=== PATIENT | female | born 1995 | race Caucasian/White ===

== ENCOUNTER 2017-04-25 23:26 | Emergency (ER) | payer OTHER ==
[~2017-04-25] VITALS: Ht 165.1 cm; Wt 63.0 kg
[2017-04-26 00:19] LABS: BLOOD UREA NITROGEN 11 mg/dL (7-18)
[2017-04-26 00:30] VITALS: BP 111/73
[2017-04-26] MEDS ORDERED: METF500T4 PO (00:46)
== END 2017-04-26 01:53 | disposition home or self-care (01) ==
LOC: ED 23:59
DX: O26.891 Other specified pregnancy related conditions, first trimester (principal); R10.31 Right lower quadrant pain; Z3A.01 Less than 8 weeks gestation of pregnancy
CPT/HCPCS: 36415; 76801; 80048; 81001; 82040; 84702; 85025; 87086; 99285

== ENCOUNTER 2017-09-22 01:13 | Emergency (ER) | payer OTHER, MEDICAID ==
[~2017-09-22] VITALS: Ht 165.1 cm; Wt 77.0 kg
[~2017-09-22 01:13] MED LIST: METF500T4 PO
[2017-09-22] MEDS ORDERED: ONDANSETRON 2MG/ML, 2ML ONE (01:43)
[2017-09-22] MEDS ORDERED: ACETAMINOPHEN 325 MG TABLET ONE (01:43)
[2017-09-22 01:59] LABS: HEMATOCRIT 33.9 % (34.6-47.8); HEMOGLOBIN 11.8 g/dL (11.7-16.4); WHITE BLOOD COUNT 7.6 x10^3/uL (4.5-13.2)
[2017-09-22] MEDS ORDERED: SODIUM CHLORIDE 0.9% 1,000ML IVBOLUS ONE (02:00)
[2017-09-22] MEDS ORDERED: SODIUM CHLORIDE FLUSH 10ML SYR IVF ONE (02:00)
[2017-09-22] MEDS ORDERED: ONDANSETRON 2MG/ML, 2ML IVPush ONE (02:00)
[2017-09-22] MEDS ORDERED: ACETAMINOPHEN 325 MG TABLET PO ONE (02:00)
[2017-09-22 02:10] LABS: BLOOD UREA NITROGEN 7 mg/dL (7-18)
[2017-09-22 02:14] LABS: ASPARTATE AMINO TRANSFERASE 24 U/L (15-37)
[2017-09-22 03:14] VITALS: BP 120/38
== END 2017-09-22 03:00 | disposition home or self-care (01) ==
LOC: ED 01:40
DX: O99.512 Diseases of the respiratory system complicating pregnancy, second trimester (principal); Z3A.28 28 weeks gestation of pregnancy; J20.9 Acute bronchitis, unspecified; J02.8 Acute pharyngitis due to other specified organisms; B34.9 Viral infection, unspecified; R07.89 Other chest pain
CPT/HCPCS: 36415; 71020; 80053; 81003; 85025; 87081; 87880; 93005; 96361; 96374; 99285; J2405; J7030

== ENCOUNTER 2017-10-02 17:51 | Inpatient (IN) | payer OTHER, MEDICAID ==
[~2017-10-02] VITALS: Ht 165.1 cm; Wt 77.3 kg
[2017-10-02 18:05] VITALS: BP 130/81
[2017-10-02 18:28] LABS: PATH.CAST-FLAG NOT PRESENT; SPERM-FLAG NOT PRESENT; SRC-FLAG NOT PRESENT; XTAL-FLAG NOT PRESENT; YLC-FLAG NOT PRESENT
[2017-10-02] MEDS ORDERED: BETAMETHASONE 6 MG/ML, 5ML IM ONE (19:41)
[2017-10-02] MEDS: BETAMETHASONE 6 MG/ML, 5ML IM SCH (19:43)
[2017-10-02] MEDS: LACTATED RINGERS 1,000 ML IV PRN (19:43)
[2017-10-02] MEDS: AMPICILLIN 2 GM in SODIUM CHLORIDE 0.9% 100 ML IV SCH (19:45)
[2017-10-02 20:20] LABS: HEMATOCRIT 38.3 % (34.6-47.8); WHITE BLOOD COUNT 10.9 x10^3/uL (4.5-13.2)
[2017-10-02] MEDS: AZITHROMYCIN 500 MG in SODIUM CHLORIDE 0.9% 250 ML IV SCH (20:25)
[2017-10-03] MEDS: AMPICILLIN 2 GM in SODIUM CHLORIDE 0.9% 100 ML IV SCH ×4 (01:46→20:10)
[2017-10-03] MEDS: LACTATED RINGERS 1,000 ML IV PRN (06:13)
[2017-10-03] MEDS ORDERED: PRENATAL VIT/IRON/FA 1 EACH TABLET ONE (07:57)
[2017-10-03] MEDS ORDERED: PRENATAL VIT/IRON/FA 1 EACH TABLET PO SCH (09:00)
[2017-10-03] MEDS ORDERED: ONDANSETRON 2MG/ML, 2ML ONE (15:28)
[2017-10-03] MEDS ORDERED: ACETAMINOPHEN 325 MG TABLET ONE ×2 (15:29→21:34)
[2017-10-03] MEDS ORDERED: FLUCONAZOLE 100 MG TABLET PO ONE (15:30)
[2017-10-03] MEDS ORDERED: ONDANSETRON 2MG/ML, 2ML IVPush PRN (15:30)
[2017-10-03] MEDS: ACETAMINOPHEN 325 MG TABLET PO PRN ×2 (15:35→21:36)
[2017-10-03] MEDS: BETAMETHASONE 6 MG/ML, 5ML IM SCH (19:46)
[2017-10-03] MEDS: AZITHROMYCIN 500 MG in SODIUM CHLORIDE 0.9% 250 ML IV SCH (20:48)
[2017-10-03 20:57] VITALS: BP 129/57
[2017-10-04] MEDS: AMPICILLIN 2 GM in SODIUM CHLORIDE 0.9% 100 ML IV SCH ×2 (02:04→08:25)
[2017-10-04 08:00] VITALS: BP 118/56
[2017-10-04 09:01] LABS: AMNI OBC PASS; AMNISURE NEGATIVE (NEGATIVE)
[2017-10-04] MEDS ORDERED: AZITHROMYCIN 500 MG TABLET PO ONE (10:00)
[2017-10-04] MEDS ORDERED: AMOX250C17 PO (10:02)
== END 2017-10-04 11:10 | disposition home or self-care (01) | DRG 781 ==
LOC: LDOP 17:51 → LDIP 19:37
PROVIDERS: ADMIT Obstetrics & Gynecology; ATTEND Obstetrics & Gynecology
DX: O42.913 Preterm premature rupture of membranes, unspecified as to length of time between rupture and onset of labor, third trimester (principal); O99.343 Other mental disorders complicating pregnancy, third trimester; F32.9 Major depressive disorder, single episode, unspecified; F41.9 Anxiety disorder, unspecified; Z3A.29 29 weeks gestation of pregnancy
CPT/HCPCS: 36415; 76805; 76815; 81001; 82731; 84112; 85025; 86850; 86900; 87081; 87086; 87106; 89060; J0290; J0456; J0702; J2405; J7050; J7120; Q0114

== ENCOUNTER 2017-10-14 15:25 | Outpatient (CLI) | payer OTHER, MEDICAID ==
[~2017-10-14] VITALS: Ht 165.1 cm; Wt 72.3 kg
[~2017-10-14 15:25] MED LIST changes: +AMOX250C17 PO
[2017-10-14] MEDS ORDERED: LACTATED RINGERS 1,000 ML IVBOLUS ONE (16:00)
[2017-10-14] MEDS ORDERED: PLEASE ENTER HEIGHT AND WEIGHT MC SCH (16:00)
[2017-10-14 16:08] LABS: HEMATOCRIT 35.5 % (34.6-47.8); HEMOGLOBIN 12.1 g/dL (11.7-16.4); WHITE BLOOD COUNT 11.5 x10^3/uL (4.5-13.2)
[2017-10-14 16:18] LABS: ASPARTATE AMINO TRANSFERASE 13 U/L (15-37); BLOOD UREA NITROGEN 8 mg/dL (7-18)
[2017-10-14 16:22] VITALS: BP 135/85
[2017-10-14] MEDS ORDERED: PREN1TAB60 PO (17:06)
== END 2017-10-14 17:16 | disposition home or self-care (01) ==
LOC: LDOP 15:25
PROVIDERS: ATTEND Obstetrics & Gynecology
DX: O36.8130 Decreased fetal movements, third trimester, not applicable or unspecified (principal); O26.893 Other specified pregnancy related conditions, third trimester; O99.343 Other mental disorders complicating pregnancy, third trimester; O99.513 Diseases of the respiratory system complicating pregnancy, third trimester; F32.9 Major depressive disorder, single episode, unspecified; J45.909 Unspecified asthma, uncomplicated; R25.2 Cramp and spasm; Z3A.30 30 weeks gestation of pregnancy
CPT/HCPCS: 36415; 59025; 80053; 81001; 84550; 85025; 99211; J7120; G0463

== ENCOUNTER 2017-10-19 11:31 | Outpatient (CLI) | payer OTHER, MEDICAID ==
[~2017-10-19] VITALS: Ht 162.6 cm; Wt 71.4 kg
[~2017-10-19 11:31] MED LIST changes: +PREN1TAB60 PO
[2017-10-19 13:04] LABS: BASOPHILS % (AUTO) 1 % (0-1); EOSINOPHILS # (AUTO) 0.12 x10^3/uL (0-0.8); EOSINOPHILS % (AUTO) 1 % (1-7); LYMPHOCYTES # (AUTO) 1.68 x10^3/uL (1-6.1); LYMPHOCYTES % (AUTO) 15 % (22-44); MD NO; MEAN CORPUSCULAR HEMOGLOBIN 30.7 pg (27.0-34.8); MEAN CORPUSCULAR HGB CONC 33.7 g/dL (32.4-35.8); MEAN CORPUSCULAR VOLUME 91.1 fL (80-100); MEAN PLATELET VOLUME 7.5 fL (7.4-10.4); MONOCYTES % (AUTO) 8 % (2-9); NEUTROPHILS # (AUTO) 8.29 x10^3/uL (1.8-8.0); NEUTROPHILS % (AUTO) 75 % (42-75); PLATELET COUNT 211 x10^3/uL (130-400); RED BLOOD COUNT 4.09 x10^6/uL (3.82-5.3); RED CELL DISTRIBUTION WIDTH 13.1 % (9.6-15.2)
[2017-10-19 13:10] LABS: MICROSCOPIC AUTO
[2017-10-19 13:17] LABS: ALANINE AMINOTRANSFERASE 22 U/L (12-78); ALBUMIN 2.6 g/dL (3.4-5.0); ANION GAP 9 mmol/L (5-15); CALCIUM 8.5 mg/dL (8.5-10.1); CHLORIDE 107 mmol/L (98-107); CREATININE 0.59 mg/dL (0.55-1.02)
[2017-10-19 13:19] LABS: ALKALINE PHOSPHATASE 111 U/L (45-117); BILIRUBIN,TOTAL 0.2 mg/dL (0.2-1.0); TOTAL PROTEIN 6.9 g/dL (6.4-8.2)
[2017-10-19 13:22] LABS: RAPID INFLUENZA A Negative (Negative); RAPID INFLUENZA B Negative (Negative)
== END 2017-10-19 14:15 | disposition home or self-care (01) ==
LOC: LDOP 11:31
PROVIDERS: ATTEND Obstetrics & Gynecology
DX: O36.8130 Decreased fetal movements, third trimester, not applicable or unspecified (principal); Z3A.30 30 weeks gestation of pregnancy
CPT/HCPCS: 36415; 59025; 76819; 80053; 81001; 85025; 87086; 87400; 99211; G0463

== ENCOUNTER 2017-12-04 01:42 | Emergency (ER) | payer OTHER, MEDICAID ==
[~2017-12-04] VITALS: Ht 162.6 cm; Wt 86.1 kg
[2017-12-04 01:44] VITALS: BP 142/89
== END 2017-12-04 02:56 | disposition home or self-care (01) ==
LOC: ED 01:59
DX: Z02.9 Encounter for administrative examinations, unspecified (principal)

== ENCOUNTER 2017-12-04 02:14 | Observation (INO) | payer OTHER, MEDICAID ==
[~2017-12-04] VITALS: Ht 165.1 cm; Wt 79.5 kg
[2017-12-04 02:56] LABS: BASOPHILS # (AUTO) 0.08 x10^3/uL (0-0.1); BASOPHILS % (AUTO) 1 % (0-1); EOSINOPHILS # (AUTO) 0.13 x10^3/uL (0-0.4); EOSINOPHILS % (AUTO) 1 % (1-7); LYMPHOCYTES % (AUTO) 18 % (22-44); MD NO; MEAN CORPUSCULAR HEMOGLOBIN 29.5 pg (27.0-34.8); MEAN CORPUSCULAR HGB CONC 33.9 g/dL (32.4-35.8); MEAN PLATELET VOLUME 7.9 fL (7.4-10.4); MONOCYTES # (AUTO) 0.69 x10^3/uL (0.2-0.8); MONOCYTES % (AUTO) 7 % (2-9); NEUTROPHILS # (AUTO) 7.11 x10^3/uL (1.8-6.8); NEUTROPHILS % (AUTO) 73 % (42-75); PLATELET COUNT 234 x10^3/uL (130-400); RED CELL DISTRIBUTION WIDTH 13.5 % (9.6-15.2)
[2017-12-04 02:57] LABS: MICROSCOPIC NOT IND
[2017-12-04 03:04] LABS: ALANINE AMINOTRANSFERASE 17 U/L (12-78); ALBUMIN 2.4 g/dL (3.4-5.0); ANION GAP 11 mmol/L (5-15); CALCIUM 8.7 mg/dL (8.5-10.1); CHLORIDE 109 mmol/L (98-107); CREATININE 0.76 mg/dL (0.55-1.02)
[2017-12-04 03:07] LABS: ALKALINE PHOSPHATASE 167 U/L (45-117); BILIRUBIN, DIRECT < 0.1 mg/dL (0.1-0.2); BILIRUBIN,TOTAL < 0.1 mg/dL (0.2-1.0); TOTAL PROTEIN 6.5 g/dL (6.4-8.2)
[2017-12-04 03:09] LABS: AMPHETAMINE SCREEN, URINE Negative (Negative); BARBITURATE SCREEN, URINE Negative (Negative); BENZODIAZEPINE SCREEN, URINE Negative (Negative); CANNABINOID SCREEN, URINE Negative (Negative); COCAINE SCREEN, URINE Negative (Negative); METHADONE SCREEN, URINE Negative (Negative); OPIATE SCREEN, URINE Negative (Negative)
[2017-12-04] MEDS ORDERED: LACTATED RINGERS 1,000 ML IVBOLUS ONE (03:30)
[2017-12-04] MEDS ORDERED: ONDANSETRON 2MG/ML, 2ML IVPush ONE (03:30)
[2017-12-04] MEDS ORDERED: D5%-LACTATED RINGERS 1,000 ML IV SCH (03:30)
[2017-12-04] MEDS ORDERED: ONDANSETRON 2MG/ML, 2ML ONE (03:58)
[2017-12-04 04:12] LABS: RAPID INFLUENZA A Negative (Negative); RAPID INFLUENZA B Negative (Negative)
[2017-12-04 06:41] LABS: CLOSTRIDIUM DIFFICILE ANTIGEN NEGATIVE; CLOSTRIDIUM DIFFICILE TOXIN NEGATIVE (Negative)
== END 2017-12-04 09:52 | disposition home or self-care (01) ==
LOC: LDOP 02:14 → LDIP 03:30
PROVIDERS: ADMIT Obstetrics & Gynecology; ATTEND Obstetrics & Gynecology
DX: O21.9 Vomiting of pregnancy, unspecified (principal); Z3A.00 Weeks of gestation of pregnancy not specified
CPT/HCPCS: 36415; 59025; 80053; 80307; 81003; 82248; 84550; 85025; 87086; 87324; 87400; 96361; 96374; G0378; J2405; J7120; 96360; 99211; G0463; J7121

== ENCOUNTER 2017-12-13 14:20 | Outpatient (CLI) | payer OTHER, MEDICAID | END 2017-12-13 17:15 | disposition home or self-care (01) | LOC: LDOP 14:20 | PROVIDERS: ATTEND Obstetrics & Gynecology | DX: O36.8130 Decreased fetal movements, third trimester, not applicable or unspecified (principal); Z3A.39 39 weeks gestation of pregnancy | CPT/HCPCS: 59025; 76819; 99211; G0463 ==

== ENCOUNTER 2017-12-15 15:54 | Outpatient (CLI) | payer OTHER, MEDICAID ==
[~2017-12-15] VITALS: Ht 165.1 cm; Wt 87.3 kg
[2017-12-15] MEDS ORDERED: HYDROXYZINE PAMOATE 50MG CAP PO ONE (17:30)
== END 2017-12-15 18:05 ==
LOC: LDOP 15:54
PROVIDERS: ATTEND Obstetrics & Gynecology
DX: O26.893 Other specified pregnancy related conditions, third trimester (principal); R10.9 Unspecified abdominal pain; Z3A.39 39 weeks gestation of pregnancy
CPT/HCPCS: 59025; 99211; G0463

== ENCOUNTER 2017-12-15 21:24 | Inpatient (IN) | payer OTHER, MEDICAID ==
[~2017-12-15] VITALS: Ht 165.1 cm; Wt 86.4 kg
[2017-12-15 21:20] VITALS: BP 139/88
[2017-12-15] MEDS ORDERED: D5%-LACTATED RINGERS 1,000 ML IV SCH (21:32)
[2017-12-15] MEDS ORDERED: OXYTOCIN 30U/ 0.9% NaCL 500ML 500 ML IV ONE (21:32)
[2017-12-15] MEDS ORDERED: LIDOCAINE 1%, 20ML ONE (21:34)
[2017-12-15] MEDS ORDERED: NEWBORN KIT ONE (21:34)
[2017-12-15] MEDS ORDERED: OXYTOCIN 30U/ 0.9% NaCL 500ML 500 ML ONE (21:34)
[2017-12-15] MEDS ORDERED: MISOPROSTOL 200 MCG TABLET ONE (21:34)
[2017-12-15 21:57] LABS: BASOPHILS # (AUTO) 0.01 x10^3/uL (0-0.1); BASOPHILS % (AUTO) 0 % (0-1); EOSINOPHILS # (AUTO) 0.04 x10^3/uL (0-0.4); EOSINOPHILS % (AUTO) 0 % (1-7); LYMPHOCYTES # (AUTO) 1.41 x10^3/uL (1-3.4); LYMPHOCYTES % (AUTO) 11 % (22-44); MD NO; MEAN CORPUSCULAR HEMOGLOBIN 28.7 pg (27.0-34.8); MEAN CORPUSCULAR HGB CONC 33.6 g/dL (32.4-35.8); MEAN CORPUSCULAR VOLUME 85.3 fL (80-100); MEAN PLATELET VOLUME 8.2 fL (7.4-10.4); MONOCYTES # (AUTO) 0.56 x10^3/uL (0.2-0.8); MONOCYTES % (AUTO) 4 % (2-9); NEUTROPHILS # (AUTO) 11.26 x10^3/uL (1.8-6.8); NEUTROPHILS % (AUTO) 85 % (42-75); PLATELET COUNT 253 x10^3/uL (130-400); RED BLOOD COUNT 4.52 x10^6/uL (3.82-5.3); RED CELL DISTRIBUTION WIDTH 13.6 % (9.6-15.2)
[2017-12-15] MEDS: LACTATED RINGERS 1,000 ML IV SCH ×2 (21:59→23:00)
[2017-12-15 22:00] VITALS: BP 139/88
[2017-12-15] MEDS ORDERED: FENTANYL PF 100 MCG/2ML IVPush PRN (22:00)
[2017-12-15] MEDS ORDERED: ONDANSETRON 2MG/ML, 2ML IVPush PRN (22:00)
[2017-12-15] MEDS ORDERED: PLEASE ENTER HEIGHT AND WEIGHT MC SCH (22:00)
[2017-12-15] MEDS ORDERED: CALCIUM CARBONATE 500 MG TAB.CHEW PO PRN (22:00)
[2017-12-15] MEDS ORDERED: FENTANYL PF 100 MCG/2ML ONE (22:15)
[2017-12-15] MEDS: FENTANYL PF 100 MCG/2ML IV PRN ×2 (22:22→23:18)
[2017-12-15] MEDS ORDERED: FENTANYL/BUPIV./NS/PF 250 ML EPIDCONT ONE (23:15)
[2017-12-15] MEDS ORDERED: BUPIVACAINE/PF 0.25% ONE (23:25)
[2017-12-16] MEDS ORDERED: FENTANYL PF 100 MCG/2ML ONE (01:17)
[2017-12-16] MEDS ORDERED: OXYTOCIN 30U/ 0.9% NaCL 500ML 500 ML ONE (03:59)
[2017-12-16] MEDS ORDERED: IBUPROFEN 600 MG TABLET ONE (03:59)
[2017-12-16] MEDS ORDERED: OXYcodone/APAP 5/325MG TABLET ONE (03:59)
[2017-12-16] MEDS ORDERED: HYDROcodone/APAP 5/325 TABLET PO PRN (04:00)
[2017-12-16] MEDS ORDERED: MISOPROSTOL 200 MCG TABLET PR PRN (04:00)
[2017-12-16] MEDS ORDERED: ACETAMINOPHEN 325 MG TABLET PO PRN (04:00)
[2017-12-16] MEDS ORDERED: CARBOPROST TROMETHAMINE 250 MCG/ML, 1ML IM PRN (04:00)
[2017-12-16] MEDS ORDERED: METHYLERGONOVINE 0.2 MG/ML IM PRN (04:00)
[2017-12-16] MEDS ORDERED: ONDANSETRON 2MG/ML, 2ML IV PRN (04:00)
[2017-12-16] MEDS ORDERED: CALCIUM CARBONATE 500 MG TAB.CHEW PO PRN (04:00)
[2017-12-16] MEDS: OXYTOCIN 30U/ 0.9% NaCL 500ML 500 ML IV SCH ×2 (04:01→13:54)
[2017-12-16] MEDS: IBUPROFEN 600 MG TABLET PO PRN ×3 (04:02→18:59)
[2017-12-16] MEDS ORDERED: HYDROcodone/APAP 5/325 TABLET ONE (04:06)
[2017-12-16 05:00] VITALS: BP 119/71
[2017-12-16 06:30] VITALS: BP 123/60
[2017-12-16] MEDS ORDERED: ONDANSETRON 2MG/ML, 2ML IVPush PRN (07:00)
[2017-12-16] MEDS ORDERED: LACTATED RINGERS 1,000 ML IVBOLUS PRN (07:00)
[2017-12-16] MEDS ORDERED: EPHEDRINE 50 MG/ML, 1ML IVPush PRN (07:00)
[2017-12-16] MEDS ORDERED: FENTANYL/BUPIV./NS/PF 250 ML EPIDCONT SCH (07:00)
[2017-12-16] MEDS: LACTATED RINGERS 1,000 ML IV SCH ×2 (07:00→15:00)
[2017-12-16] MEDS ORDERED: DIPHENHYDRAMINE 50 MG/ML, 1ML IVPush PRN (07:00)
[2017-12-16] MEDS: PRENATAL VIT/IRON/FA 1 EACH TABLET PO SCH (07:50)
[2017-12-16] MEDS: DOCUSATE 100 MG CAPSULE PO PRN ×2 (07:50→18:59)
[2017-12-16 08:00] VITALS: BP 123/63
[2017-12-16 12:10] LABS: BASOPHILS # (AUTO) 0.08 x10^3/uL (0-0.1); BASOPHILS % (AUTO) 1 % (0-1); EOSINOPHILS # (AUTO) 0.01 x10^3/uL (0-0.4); EOSINOPHILS % (AUTO) 0 % (1-7); HEMOGRAM NOTE RECHECKED; LYMPHOCYTES # (AUTO) 1.42 x10^3/uL (1-3.4); LYMPHOCYTES % (AUTO) 10 % (22-44); MD NO; MEAN CORPUSCULAR HEMOGLOBIN 28.9 pg (27.0-34.8); MEAN CORPUSCULAR HGB CONC 33.8 g/dL (32.4-35.8); MEAN CORPUSCULAR VOLUME 85.4 fL (80-100); MEAN PLATELET VOLUME 7.6 fL (7.4-10.4); MONOCYTES # (AUTO) 0.91 x10^3/uL (0.2-0.8); MONOCYTES % (AUTO) 7 % (2-9); NEUTROPHILS # (AUTO) 11.29 x10^3/uL (1.8-6.8); NEUTROPHILS % (AUTO) 82 % (42-75); PLATELET COUNT 202 x10^3/uL (130-400); RED BLOOD COUNT 3.71 x10^6/uL (3.82-5.3); RED CELL DISTRIBUTION WIDTH 13.9 % (9.6-15.2)
[2017-12-16] MEDS: HYDROcodone/APAP 5/325 TABLET PO PRN ×3 (12:42→22:36)
[2017-12-16 20:00] VITALS: BP 141/89
[2017-12-17 00:14] VITALS: BP 131/89
[2017-12-17] MEDS: IBUPROFEN 600 MG TABLET PO PRN ×2 (01:20→08:26)
[2017-12-17] MEDS: HYDROcodone/APAP 5/325 TABLET PO PRN (06:12)
[2017-12-17 07:56] VITALS: BP 133/74
[2017-12-17] MEDS: DOCUSATE 100 MG CAPSULE PO PRN (08:26)
[2017-12-17] MEDS: PRENATAL VIT/IRON/FA 1 EACH TABLET PO SCH (08:26)
[2017-12-17] MEDS ORDERED: HYDR-3240 PO (08:30)
[2017-12-17] MEDS ORDERED: IBUP-1222 PO (08:33)
== END 2017-12-17 10:10 | disposition home or self-care (01) | DRG 775 ==
LOC: LDOP 21:24 → LDIP 21:40 → 2NW 12-16 04:53
PROVIDERS: ADMIT Obstetrics & Gynecology; ATTEND Obstetrics & Gynecology
PROC: 10E0XZZ Delivery of Products of Conception, External Approach (ICD-10-PCS; principal; 2017-12-16)
PROC: 3E0R3BZ Introduction of Anesthetic Agent into Spinal Canal, Percutaneous Approach (ICD-10-PCS; 2017-12-16)
PROC: 00HU33Z Insertion of Infusion Device into Spinal Canal, Percutaneous Approach (ICD-10-PCS; 2017-12-16)
DX: O70.1 Second degree perineal laceration during delivery (principal); Z37.0 Single live birth; Z3A.39 39 weeks gestation of pregnancy
CPT/HCPCS: 36415; 82803; 85025; 86850; 86900; J3010; J3490; J2590; J7120; J7121